=== PATIENT | female | born 1935 | race Caucasian/White ===

== ENCOUNTER 2019-03-22 16:35 | Inpatient (IN) | payer MEDICARE, OTHER ==
[~2019-03-22] VITALS: Ht 160 cm; Wt 55.8 kg
[2019-03-22 19:45] VITALS: BP_SYST 137; BP_SYST 139; BP_DIAS 64
[2019-03-22] MEDS ORDERED: MELATONIN 5 MG TABLET PO PRN (20:15)
[2019-03-22] MEDS ORDERED: ACETAMINOPHEN 325 MG TABLET PO PRN ×2 (20:15)
[2019-03-22] MEDS ORDERED: SODIUM CHLORIDE 0.9% 250 ML IV ONE (21:40)
[2019-03-22] MEDS: DOCUSATE SODIUM 100 MG CAPSULE PO SCH (21:51)
[2019-03-22] MEDS: PIPERACILLIN/TAZO 3.375 GM/D5W 50 ML IV SCH (21:51)
[2019-03-22] MEDS: PANTOPRAZOLE SODIUM 40 MG DR TABLET PO SCH (21:51)
[2019-03-22] MEDS: SENNA 187 MG TABLET PO SCH (21:51)
[2019-03-22] MEDS ORDERED: SODIUM CL IRRIG SOLN BOTTLE 250 ML IRRIG ONE (22:06)
[2019-03-23 01:12] VITALS: BP 144/71
[2019-03-23] MEDS: PIPERACILLIN/TAZO 3.375 GM/D5W 50 ML IV SCH ×3 (05:02→21:11)
[2019-03-23 07:50] LABS: EOSINOPHILS % (AUTO) 1.5 % (1.0-6.0); HEMATOCRIT 25.5 % (36-46); HEMOGLOBIN 8.6 g/dL (12.0-16.0); LYMPHOCYTES % (AUTO) 10.1 % (22.0-44.0); MEAN CORPUSCULAR HEMOGLOBIN 31.7 pg (26.0-34.0); MEAN CORPUSCULAR HGB CONC 33.8 G/dL (31.0-37.0); MEAN CORPUSCULAR VOLUME 94 fL (80-100); MONOCYTES # (AUTO) 1.1 K/uL (0.1-1.0); NEUTROPHILS # (AUTO) 7.5 K/uL (1.8-7.7); NEUTROPHILS % (AUTO) 76.4 % (40.0-70.0); PLATELET COUNT (AUTO) 743 K/uL (150-450); RED BLOOD CELL COUNT(AUTO) 2.73 MIL/uL (4.00-5.20); RED CELL DISTRIBUTION WIDTH 16.9 % (11.5-14.5)
[2019-03-23 08:14] LABS: ALANINE AMINOTRANSFERASE 18 U/L (12-78); ALBUMIN 1.4 g/dL (3.4-5.0); ALKALINE PHOSPHATASE 78 U/L (46-116); ANION GAP 7 mmol/L (8-16); ASPARTATE AMINOTRANSFERASE 20 U/L (15-37); BILIRUBIN,TOTAL 0.4 mg/dL (0.1-1.0); C-REACTIVE PROTEIN QUANT 3.27 mg/dL (0.00-0.30); CALCIUM, TOTAL 7.6 mg/dL (8.8-10.5); CARBON DIOXIDE 29 mmol/L (22-29); CHLORIDE 105 mmol/L (98-107); CREATININE 0.73 mg/dL (0.60-1.30); GLUCOSE,RANDOM 111 mg/dL (70-110); SODIUM SERUM 141 mmol/L (136-145); TOTAL PROTEIN, SERUM 4.9 g/dL (6.4-8.2); UREA NITROGEN, BLOOD 4 mg/dL (7-18)
[2019-03-23] MEDS: DOCUSATE SODIUM 100 MG CAPSULE PO SCH ×2 (08:17→21:00)
[2019-03-23] MEDS: MULTIVITAMINS WITH MINERALS, THERAPEUTIC TABLET PO SCH (08:17)
[2019-03-23] MEDS: ASCORBIC ACID 500 MG TABLET PO SCH (08:17)
[2019-03-23] MEDS: PANTOPRAZOLE SODIUM 40 MG DR TABLET PO SCH ×2 (08:17→19:55)
[2019-03-23 08:18] LABS: GLOMERULAR FILTR. RATE CALC > 60 mL/min (>60)
[2019-03-23] MEDS: 0.9% SODIUM CHLORIDE 10 ML SYRINGE IVP SCH ×3 (08:24→23:35)
[2019-03-23 08:41] VITALS: BP 129/64
[2019-03-23 09:28] LABS: ERYTHROCYTE SEDIMENTATION RATE 70 MM/HR (0-20)
[2019-03-23 17:15] VITALS: BP 132/75
[2019-03-23] MEDS: ONDANSETRON HCL 4 MG TABLET PO PRN ×2 (19:55→23:34)
[2019-03-23] MEDS: CHLORHEXIDINE GLUCONATE 4% 118 ML TOPICAL LIQUID TP SCH (21:00)
[2019-03-23] MEDS: SENNA 187 MG TABLET PO SCH (21:00)
[2019-03-23] MEDS ORDERED: SODIUM CHLORIDE 0.9% 100 ML ONE (21:04)
[2019-03-23 23:45] VITALS: BP 124/56
[2019-03-24] MEDS: PIPERACILLIN/TAZO 3.375 GM/D5W 50 ML IV SCH ×3 (04:55→21:00)
[2019-03-24] MEDS: ONDANSETRON HCL 4 MG TABLET PO PRN (04:55)
[2019-03-24 07:45] VITALS: BP 119/49
[2019-03-24] MEDS: PANTOPRAZOLE SODIUM 40 MG DR TABLET PO SCH (09:28)
[2019-03-24] MEDS: MULTIVITAMINS WITH MINERALS, THERAPEUTIC TABLET PO SCH ×2 (09:28→12:42)
[2019-03-24] MEDS: ASCORBIC ACID 500 MG TABLET PO SCH ×2 (09:28→12:42)
[2019-03-24] MEDS: 0.9% SODIUM CHLORIDE 10 ML SYRINGE IVP SCH ×2 (09:34→15:54)
[2019-03-24 10:09] LABS: ANION GAP 7 mmol/L (8-16); CALCIUM, TOTAL 8.2 mg/dL (8.8-10.5); CARBON DIOXIDE 30 mmol/L (22-29); CHLORIDE 104 mmol/L (98-107); CREATININE 0.66 mg/dL (0.60-1.30); GLOMERULAR FILTR. RATE CALC > 60 mL/min (>60); GLUCOSE,RANDOM 113 mg/dL (70-110); POTASSIUM 3.1 mmol/L (3.5-5.1); SODIUM SERUM 141 mmol/L (136-145); UREA NITROGEN, BLOOD 5 mg/dL (7-18)
[2019-03-24] MEDS ORDERED: POTASSIUM CHLORIDE 10% 40 MEQ/30 ML LIQUID UDCUP PO ONE (10:45)
[2019-03-24] MEDS: DOCUSATE SODIUM 100 MG CAPSULE PO SCH ×2 (12:42→21:00)
[2019-03-24] MEDS ORDERED: ONDANSETRON HCL 4 MG/2 ML VIAL IVP PRN (13:30)
[2019-03-24] MEDS ORDERED: POTASSIUM CHL 20 MEQ/0.9% NS 1,000 ML IV SCH (14:00)
[2019-03-24] MEDS ORDERED: ERGOCALCIFEROL (VIT D2) 50,000 UNITS CAPSULE PO SCH (14:04)
[2019-03-24] MEDS ORDERED: SODIUM CHLORIDE 0.9% 100 ML ONE (14:49)
[2019-03-24] MEDS ORDERED: IOVERSOL 320 MG/ML 100 ML VIAL ONE (14:49)
[2019-03-24 15:43] VITALS: BP 142/56
[2019-03-24] MEDS ORDERED: ONDANSETRON HCL 4 MG TABLET PO PRN (17:45)
[2019-03-24] MEDS ORDERED: HYDROmorphone 2 MG/ML SYRINGE IVP ONE (20:15)
[2019-03-24] MEDS ORDERED: CALCIUM CARBONATE 500 MG CHEWABLE TABLET CHEW SCH (21:00)
[2019-03-24] MEDS: SENNA 187 MG TABLET PO SCH (21:00)
[2019-03-24] MEDS: CHLORHEXIDINE GLUCONATE 4% 118 ML TOPICAL LIQUID TP SCH (21:00)
[2019-03-24] MEDS ORDERED: PANTOPRAZOLE SODIUM 40 MG/VIAL IVP SCH (21:00)
[2019-03-24 21:26] VITALS: BP 150/74
== END 2019-03-24 21:40 | disposition short-term general hospital (02) | DRG 947 ==
LOC: 2WR 19:30
PROVIDERS: ADMIT Physical Medicine & Rehabilitation; ATTEND Physical Medicine & Rehabilitation
DX: R53.81 Other malaise (principal); G93.41 Metabolic encephalopathy; I10 Essential (primary) hypertension; M81.0 Age-related osteoporosis without current pathological fracture; Z96.642 Presence of left artificial hip joint; E87.6 Hypokalemia; E83.51 Hypocalcemia; G43.909 Migraine, unspecified, not intractable, without status migrainosus; Z82.0 Family history of epilepsy and other diseases of the nervous system; Z82.49 Family history of ischemic heart disease and other diseases of the circulatory system; Z83.3 Family history of diabetes mellitus; Z93.3 Colostomy status; Z79.899 Other long term (current) drug therapy
CPT/HCPCS: 74018; 74177; 84132; 85651; 86140; 87081; 97110; 97116; 97162; 97166; 97530; 97535; J1170; J2405; J2543; J3480; J7050; Q0162

== ENCOUNTER 2019-04-01 17:24 | Inpatient (IN) | payer MEDICARE, OTHER ==
[~2019-04-01] VITALS: Ht 160 cm; Wt 56.2 kg
[2019-04-01 19:28] VITALS: BP 149/75
[2019-04-01] MEDS ORDERED: ALBUTEROL SULFATE 2.5 MG/0.5 ML NEB SOLUTION NEB PRN (20:15)
[2019-04-01] MEDS ORDERED: SODIUM CL IRRIG SOLN BOTTLE 250 ML IRRIG ONE (20:55)
[2019-04-01] MEDS ORDERED: ACETAMINOPHEN 325 MG TABLET PO PRN (22:00)
[2019-04-01] MEDS ORDERED: SODIUM CHLORIDE 0.9% 250 ML IV ONE (22:23)
[2019-04-01] MEDS: DOCUSATE SODIUM 100 MG CAPSULE PO SCH (22:30)
[2019-04-01] MEDS: SENNA 187 MG TABLET PO SCH (22:30)
[2019-04-01] MEDS: PIPERACILLIN/TAZO 3.375 GM/D5W 50 ML IV SCH (22:31)
[2019-04-02] MEDS: 0.9% SODIUM CHLORIDE 10 ML SYRINGE IVP SCH ×4 (04:59→23:50)
[2019-04-02] MEDS: PIPERACILLIN/TAZO 3.375 GM/D5W 50 ML IV SCH ×3 (04:59→21:05)
[2019-04-02] MEDS: PANTOPRAZOLE SODIUM 40 MG DR TABLET PO SCH ×2 (05:44→17:07)
[2019-04-02 07:48] LABS: BASOPHILS % (AUTO) 2.2 % (0.0-2.0); EOSINOPHILS % (AUTO) 3.9 % (1.0-6.0); HEMATOCRIT 25.7 % (36-46); HEMOGLOBIN 8.8 g/dL (12.0-16.0); LYMPHOCYTES # (AUTO) 1.7 K/uL (1.0-4.8); LYMPHOCYTES % (AUTO) 25.8 % (22.0-44.0); MEAN CORPUSCULAR HEMOGLOBIN 31.6 pg (26.0-34.0); MEAN CORPUSCULAR HGB CONC 34.1 G/dL (31.0-37.0); MEAN CORPUSCULAR VOLUME 93 fL (80-100); MONOCYTES # (AUTO) 0.7 K/uL (0.1-1.0); MONOCYTES % (AUTO) 10.9 % (2.0-9.0); NEUTROPHILS # (AUTO) 3.9 K/uL (1.8-7.7); NEUTROPHILS % (AUTO) 57.2 % (40.0-70.0); PLATELET COUNT (AUTO) 444 K/uL (150-450); RED BLOOD CELL COUNT(AUTO) 2.77 MIL/uL (4.00-5.20); RED CELL DISTRIBUTION WIDTH 16.9 % (11.5-14.5)
[2019-04-02 08:03] LABS: ALANINE AMINOTRANSFERASE 9 U/L (12-78); ALBUMIN 1.7 g/dL (3.4-5.0); ALKALINE PHOSPHATASE 75 U/L (46-116); ANION GAP 8 mmol/L (8-16); ASPARTATE AMINOTRANSFERASE 18 U/L (15-37); BILIRUBIN,TOTAL 0.3 mg/dL (0.1-1.0); CALCIUM, TOTAL 8.4 mg/dL (8.8-10.5); CARBON DIOXIDE 26 mmol/L (22-29); CHLORIDE 105 mmol/L (98-107); CREATININE 0.82 mg/dL (0.60-1.30); GLUCOSE,RANDOM 94 mg/dL (70-110); POTASSIUM 3.4 mmol/L (3.5-5.1); SODIUM SERUM 139 mmol/L (136-145); TOTAL PROTEIN, SERUM 5.6 g/dL (6.4-8.2); UREA NITROGEN, BLOOD 10 mg/dL (7-18)
[2019-04-02 08:04] LABS: GLOMERULAR FILTR. RATE CALC > 60 mL/min (>60)
[2019-04-02] MEDS: ASCORBIC ACID 500 MG TABLET PO SCH (08:35)
[2019-04-02] MEDS: DOCUSATE SODIUM 100 MG CAPSULE PO SCH ×2 (08:35→21:05)
[2019-04-02 09:01] VITALS: BP 139/75
[2019-04-02] MEDS ORDERED: SODIUM CL IRRIG SOLN BOTTLE 250 ML IRRIG ONE (14:07)
[2019-04-02 15:27] VITALS: BP 117/62
[2019-04-02] MEDS ORDERED: SODIUM CHLORIDE 0.9% 100 ML ONE (20:54)
[2019-04-02] MEDS: MELATONIN 5 MG TABLET PO PRN (21:05)
[2019-04-02] MEDS: SENNA 187 MG TABLET PO SCH (21:05)
[2019-04-03 03:00] VITALS: BP 121/58
[2019-04-03] MEDS: PIPERACILLIN/TAZO 3.375 GM/D5W 50 ML IV SCH ×3 (05:02→20:56)
[2019-04-03] MEDS: PANTOPRAZOLE SODIUM 40 MG DR TABLET PO SCH ×2 (05:06→15:59)
[2019-04-03 07:48] VITALS: BP 144/72
[2019-04-03] MEDS: 0.9% SODIUM CHLORIDE 10 ML SYRINGE IVP SCH ×2 (08:14→16:21)
[2019-04-03] MEDS: DOCUSATE SODIUM 100 MG CAPSULE PO SCH ×2 (08:14→20:55)
[2019-04-03] MEDS: ASCORBIC ACID 500 MG TABLET PO SCH (08:14)
[2019-04-03] MEDS: HYDROCODONE/ACETAMINOPHEN 5-325 MG TABLET PO PRN (15:58)
[2019-04-03] MEDS: ONDANSETRON HCL 4 MG TABLET PO PRN (15:59)
[2019-04-03 16:33] VITALS: BP 145/65
[2019-04-03] MEDS: SIMETHICONE 80 MG CHEWABLE TABLET CHEW PRN (18:25)
[2019-04-03] MEDS: SENNA 187 MG TABLET PO SCH (20:55)
[2019-04-03] MEDS ORDERED: SODIUM CHLORIDE 0.9% 100 ML ONE (21:08)
[2019-04-03] MEDS: MELATONIN 5 MG TABLET PO PRN (22:30)
[2019-04-04] MEDS: 0.9% SODIUM CHLORIDE 10 ML SYRINGE IVP SCH ×4 (00:15→23:46)
[2019-04-04] MEDS: PIPERACILLIN/TAZO 3.375 GM/D5W 50 ML IV SCH ×3 (04:58→20:19)
[2019-04-04 05:00] VITALS: BP 125/65
[2019-04-04] MEDS: PANTOPRAZOLE SODIUM 40 MG DR TABLET PO SCH ×2 (05:45→16:30)
[2019-04-04 06:17] LABS: BASOPHILS % (AUTO) 1.8 % (0.0-2.0); EOSINOPHILS % (AUTO) 2.6 % (1.0-6.0); HEMATOCRIT 26.9 % (36-46); HEMOGLOBIN 8.9 g/dL (12.0-16.0); LYMPHOCYTES # (AUTO) 1.5 K/uL (1.0-4.8); LYMPHOCYTES % (AUTO) 20.2 % (22.0-44.0); MEAN CORPUSCULAR HEMOGLOBIN 30.8 pg (26.0-34.0); MEAN CORPUSCULAR VOLUME 93 fL (80-100); MONOCYTES # (AUTO) 0.7 K/uL (0.1-1.0); MONOCYTES % (AUTO) 9.2 % (2.0-9.0); NEUTROPHILS % (AUTO) 66.2 % (40.0-70.0); PLATELET COUNT (AUTO) 443 K/uL (150-450); RED BLOOD CELL COUNT(AUTO) 2.88 MIL/uL (4.00-5.20); RED CELL DISTRIBUTION WIDTH 16.9 % (11.5-14.5)
[2019-04-04 06:40] LABS: ALANINE AMINOTRANSFERASE 9 U/L (12-78); ALBUMIN 1.8 g/dL (3.4-5.0); ALKALINE PHOSPHATASE 77 U/L (46-116); ANION GAP 8 mmol/L (8-16); ASPARTATE AMINOTRANSFERASE 17 U/L (15-37); BILIRUBIN,TOTAL 0.2 mg/dL (0.1-1.0); CALCIUM, TOTAL 8.5 mg/dL (8.8-10.5); CARBON DIOXIDE 27 mmol/L (22-29); CHLORIDE 104 mmol/L (98-107); CREATININE 0.76 mg/dL (0.60-1.30); GLUCOSE,RANDOM 107 mg/dL (70-110); POTASSIUM 3.2 mmol/L (3.5-5.1); SODIUM SERUM 139 mmol/L (136-145); TOTAL PROTEIN, SERUM 5.7 g/dL (6.4-8.2); UREA NITROGEN, BLOOD 9 mg/dL (7-18)
[2019-04-04 07:00] LABS: GLOMERULAR FILTR. RATE CALC > 60 mL/min (>60)
[2019-04-04 07:37] VITALS: BP 122/60
[2019-04-04] MEDS: DOCUSATE SODIUM 100 MG CAPSULE PO SCH ×3 (07:54→13:55)
[2019-04-04] MEDS: ASCORBIC ACID 500 MG TABLET PO SCH ×3 (07:54→13:55)
[2019-04-04] MEDS: SIMETHICONE 80 MG CHEWABLE TABLET CHEW PRN (08:48)
[2019-04-04] MEDS: HYDROCODONE/ACETAMINOPHEN 5-325 MG TABLET PO PRN (08:51)
[2019-04-04] MEDS: ONDANSETRON HCL 4 MG TABLET PO PRN (11:02)
[2019-04-04 12:29] LABS: C-REACTIVE PROTEIN QUANT 0.81 mg/dL (0.00-0.30)
[2019-04-04] MEDS ORDERED: SODIUM CHLORIDE 0.9% 1,000 ML IV ONE (12:30)
[2019-04-04] MEDS ORDERED: POTASSIUM CHLORIDE 20 MEQ ER TABLET PO ONE ×2 (13:00→21:00)
[2019-04-04] MEDS ORDERED: POTASSIUM CHL 10 MEQ/WATER 50 ML IV SCH (14:00)
[2019-04-04] MEDS: POLYETHYLENE GLYCOL 3350 17 GM PACKET PO SCH (15:19)
[2019-04-04 15:38] VITALS: BP 146/69
[2019-04-04] MEDS ORDERED: SODIUM CHLORIDE 0.45% 1,000 ML IV SCH (16:15)
[2019-04-04] MEDS ORDERED: SODIUM CHLORIDE 0.9% 250 ML IV ONE (20:09)
[2019-04-04] MEDS: SENNA 187 MG TABLET PO SCH (20:17)
[2019-04-04] MEDS: DOCUSATE SODIUM 250 MG CAPSULE PO SCH (20:18)
[2019-04-04] MEDS: MELATONIN 5 MG TABLET PO PRN (22:12)
[2019-04-05] MEDS ORDERED: POTASSIUM CHLORIDE 10% 40 MEQ/30 ML LIQUID UDCUP PO ONE
[2019-04-05 01:02] VITALS: BP 139/68
[2019-04-05] MEDS: PIPERACILLIN/TAZO 3.375 GM/D5W 50 ML IV SCH ×3 (05:07→20:27)
[2019-04-05] MEDS: PANTOPRAZOLE SODIUM 40 MG DR TABLET PO SCH ×2 (05:47→16:24)
[2019-04-05 08:07] LABS: BASOPHILS % (AUTO) 1.7 % (0.0-2.0); EOSINOPHILS % (AUTO) 2.5 % (1.0-6.0); HEMATOCRIT 24.8 % (36-46); HEMOGLOBIN 8.6 g/dL (12.0-16.0); LYMPHOCYTES # (AUTO) 1.9 K/uL (1.0-4.8); LYMPHOCYTES % (AUTO) 24.7 % (22.0-44.0); MEAN CORPUSCULAR HGB CONC 34.5 G/dL (31.0-37.0); MEAN CORPUSCULAR VOLUME 93 fL (80-100); MONOCYTES # (AUTO) 0.8 K/uL (0.1-1.0); MONOCYTES % (AUTO) 10.6 % (2.0-9.0); NEUTROPHILS # (AUTO) 4.5 K/uL (1.8-7.7); NEUTROPHILS % (AUTO) 60.5 % (40.0-70.0); PLATELET COUNT (AUTO) 432 K/uL (150-450); RED BLOOD CELL COUNT(AUTO) 2.67 MIL/uL (4.00-5.20); RED CELL DISTRIBUTION WIDTH 16.8 % (11.5-14.5)
[2019-04-05 08:15] VITALS: BP 130/63
[2019-04-05 08:50] LABS: ALANINE AMINOTRANSFERASE 12 U/L (12-78); ALBUMIN 1.8 g/dL (3.4-5.0); ALKALINE PHOSPHATASE 74 U/L (46-116); ANION GAP 6 mmol/L (8-16); ASPARTATE AMINOTRANSFERASE 17 U/L (15-37); BILIRUBIN,TOTAL 0.3 mg/dL (0.1-1.0); CALCIUM, TOTAL 8.4 mg/dL (8.8-10.5); CARBON DIOXIDE 28 mmol/L (22-29); CHLORIDE 105 mmol/L (98-107); CREATININE 0.69 mg/dL (0.60-1.30); GLUCOSE,RANDOM 91 mg/dL (70-110); POTASSIUM 3.6 mmol/L (3.5-5.1); SODIUM SERUM 139 mmol/L (136-145); TOTAL PROTEIN, SERUM 5.5 g/dL (6.4-8.2); UREA NITROGEN, BLOOD 7 mg/dL (7-18)
[2019-04-05 08:53] LABS: GLOMERULAR FILTR. RATE CALC > 60 mL/min (>60)
[2019-04-05] MEDS: POLYETHYLENE GLYCOL 3350 17 GM PACKET PO SCH (08:53)
[2019-04-05] MEDS: DOCUSATE SODIUM 250 MG CAPSULE PO SCH ×2 (08:53→20:28)
[2019-04-05] MEDS: ASCORBIC ACID 500 MG TABLET PO SCH (08:53)
[2019-04-05 15:20] VITALS: BP 131/64
[2019-04-05] MEDS ORDERED: SOD FERRIC GLUC COMPLX/SUCROSE 125 MG in SODIUM CHLORIDE 0.9% 100 ML IV ONE (16:00)
[2019-04-05] MEDS: 0.9% SODIUM CHLORIDE 10 ML SYRINGE IVP SCH ×2 (16:24→23:31)
[2019-04-05] MEDS: LACTOBACILLUS ACIDOPHILUS/BULGARICUS GRANULES PACKET PO SCH ×2 (16:24→20:28)
[2019-04-05] MEDS: MELATONIN 5 MG TABLET PO PRN (20:28)
[2019-04-05] MEDS: SENNA 187 MG TABLET PO SCH (20:28)
[2019-04-06 00:13] VITALS: BP 135/74
[2019-04-06] MEDS: PIPERACILLIN/TAZO 3.375 GM/D5W 50 ML IV SCH ×3 (05:07→20:11)
[2019-04-06] MEDS: PANTOPRAZOLE SODIUM 40 MG DR TABLET PO SCH ×2 (06:00→16:57)
[2019-04-06 07:34] VITALS: BP 157/77
[2019-04-06] MEDS: DOCUSATE SODIUM 250 MG CAPSULE PO SCH ×2 (07:54→20:11)
[2019-04-06] MEDS: MULTIVITAMINS WITH MINERALS, THERAPEUTIC TABLET PO SCH (07:54)
[2019-04-06] MEDS: ASCORBIC ACID 500 MG TABLET PO SCH (07:54)
[2019-04-06] MEDS: POLYETHYLENE GLYCOL 3350 17 GM PACKET PO SCH (07:54)
[2019-04-06] MEDS: LACTOBACILLUS ACIDOPHILUS/BULGARICUS GRANULES PACKET PO SCH ×3 (07:55→20:11)
[2019-04-06] MEDS: 0.9% SODIUM CHLORIDE 10 ML SYRINGE IVP SCH ×3 (09:19→23:41)
[2019-04-06 09:34] LABS: BASOPHILS % (AUTO) 2.6 % (0.0-2.0); EOSINOPHILS % (AUTO) 1.4 % (1.0-6.0); HEMATOCRIT 31.8 % (36-46); HEMOGLOBIN 10.5 g/dL (12.0-16.0); LYMPHOCYTES # (AUTO) 1.4 K/uL (1.0-4.8); LYMPHOCYTES % (AUTO) 20.4 % (22.0-44.0); MEAN CORPUSCULAR HEMOGLOBIN 30.9 pg (26.0-34.0); MEAN CORPUSCULAR HGB CONC 33.1 G/dL (31.0-37.0); MEAN CORPUSCULAR VOLUME 93 fL (80-100); MONOCYTES # (AUTO) 0.6 K/uL (0.1-1.0); MONOCYTES % (AUTO) 8.8 % (2.0-9.0); NEUTROPHILS # (AUTO) 4.7 K/uL (1.8-7.7); NEUTROPHILS % (AUTO) 66.8 % (40.0-70.0); PLATELET COUNT (AUTO) 550 K/uL (150-450); RED CELL DISTRIBUTION WIDTH 17.2 % (11.5-14.5)
[2019-04-06 09:47] LABS: CALCIUM, TOTAL 9.2 mg/dL (8.8-10.5); CREATININE 0.96 mg/dL (0.60-1.30); MAGNESIUM 1.8 mg/dL (1.80-2.40); PHOSPHORUS 2.7 mg/dL (2.5-4.9); POTASSIUM 3.4 mmol/L (3.5-5.1)
[2019-04-06 09:53] LABS: % IRON SATURATION 56.5 % (22-44)
[2019-04-06 15:37] VITALS: BP 139/70
[2019-04-06] MEDS ORDERED: POTASSIUM CHLORIDE 20 MEQ ER TABLET PO ONE (17:45)
[2019-04-06] MEDS: SENNA 187 MG TABLET PO SCH (20:11)
[2019-04-06 23:30] VITALS: BP 141/77
[2019-04-07] MEDS: PIPERACILLIN/TAZO 3.375 GM/D5W 50 ML IV SCH ×3 (05:06→20:20)
[2019-04-07] MEDS: PANTOPRAZOLE SODIUM 40 MG DR TABLET PO SCH ×2 (06:26→16:47)
[2019-04-07 07:25] VITALS: BP 124/71
[2019-04-07] MEDS: 0.9% SODIUM CHLORIDE 10 ML SYRINGE IVP SCH ×3 (08:34→23:09)
[2019-04-07] MEDS: POLYETHYLENE GLYCOL 3350 17 GM PACKET PO SCH (08:34)
[2019-04-07] MEDS: LACTOBACILLUS ACIDOPHILUS/BULGARICUS GRANULES PACKET PO SCH ×3 (08:35→20:19)
[2019-04-07] MEDS: ASCORBIC ACID 500 MG TABLET PO SCH (08:36)
[2019-04-07] MEDS: MULTIVITAMINS WITH MINERALS, THERAPEUTIC TABLET PO SCH (08:36)
[2019-04-07] MEDS: DOCUSATE SODIUM 250 MG CAPSULE PO SCH ×2 (08:36→20:19)
[2019-04-07 16:44] VITALS: BP 120/70
[2019-04-07] MEDS: SENNA 187 MG TABLET PO SCH (20:19)
[2019-04-07] MEDS: MELATONIN 5 MG TABLET PO PRN (20:19)
[2019-04-07 23:32] VITALS: BP 140/72
[2019-04-08] MEDS: PIPERACILLIN/TAZO 3.375 GM/D5W 50 ML IV SCH ×3 (04:56→20:04)
[2019-04-08] MEDS: PANTOPRAZOLE SODIUM 40 MG DR TABLET PO SCH ×2 (04:57→16:52)
[2019-04-08 07:10] LABS: BASOPHILS % (AUTO) 1.2 % (0.0-2.0); HEMATOCRIT 28.4 % (36-46); HEMOGLOBIN 9.8 g/dL (12.0-16.0); LYMPHOCYTES # (AUTO) 2.2 K/uL (1.0-4.8); LYMPHOCYTES % (AUTO) 25.8 % (22.0-44.0); MEAN CORPUSCULAR HEMOGLOBIN 31.9 pg (26.0-34.0); MEAN CORPUSCULAR HGB CONC 34.5 G/dL (31.0-37.0); MEAN CORPUSCULAR VOLUME 93 fL (80-100); MONOCYTES # (AUTO) 0.8 K/uL (0.1-1.0); MONOCYTES % (AUTO) 10.1 % (2.0-9.0); NEUTROPHILS # (AUTO) 5.1 K/uL (1.8-7.7); NEUTROPHILS % (AUTO) 60.9 % (40.0-70.0); PLATELET COUNT (AUTO) 449 K/uL (150-450); RED BLOOD CELL COUNT(AUTO) 3.07 MIL/uL (4.00-5.20); RED CELL DISTRIBUTION WIDTH 17.6 % (11.5-14.5)
[2019-04-08 07:16] LABS: ANION GAP 7 mmol/L (8-16); CALCIUM, TOTAL 8.8 mg/dL (8.8-10.5); CARBON DIOXIDE 29 mmol/L (22-29); CHLORIDE 107 mmol/L (98-107); CREATININE 0.76 mg/dL (0.60-1.30); GLUCOSE,RANDOM 105 mg/dL (70-110); POTASSIUM 4.1 mmol/L (3.5-5.1); SODIUM SERUM 143 mmol/L (136-145); UREA NITROGEN, BLOOD 9 mg/dL (7-18)
[2019-04-08 07:18] LABS: GLOMERULAR FILTR. RATE CALC > 60 mL/min (>60)
[2019-04-08 07:40] VITALS: BP 145/70
[2019-04-08] MEDS: ASCORBIC ACID 500 MG TABLET PO SCH (08:06)
[2019-04-08] MEDS: DOCUSATE SODIUM 250 MG CAPSULE PO SCH ×2 (08:06→20:04)
[2019-04-08] MEDS: LACTOBACILLUS ACIDOPHILUS/BULGARICUS GRANULES PACKET PO SCH ×3 (08:06→20:04)
[2019-04-08] MEDS: MULTIVITAMINS WITH MINERALS, THERAPEUTIC TABLET PO SCH (08:06)
[2019-04-08] MEDS: POLYETHYLENE GLYCOL 3350 17 GM PACKET PO SCH ×2 (08:07→08:12)
[2019-04-08] MEDS ORDERED: [UNRECOGNIZED DRUG - CODE] PO (09:47)
[2019-04-08] MEDS ORDERED: CHOL125C2 PO (09:47)
[2019-04-08] MEDS ORDERED: PYRI100T19 PO (09:50)
[2019-04-08] MEDS ORDERED: CALC-1038 PO (09:56)
[2019-04-08] MEDS ORDERED: SODIUM CHLORIDE 0.9% 250 ML IV ONE (12:34)
[2019-04-08] MEDS: 0.9% SODIUM CHLORIDE 10 ML SYRINGE IVP SCH ×3 (13:10→23:10)
[2019-04-08] MEDS: HYDROCODONE/ACETAMINOPHEN 5-325 MG TABLET PO PRN ×2 (13:25→23:10)
[2019-04-08] MEDS: ERGOCALCIFEROL (VIT D2) 50,000 UNITS CAPSULE PO SCH (14:04)
[2019-04-08 15:39] VITALS: BP 135/66
[2019-04-08] MEDS: SENNA 187 MG TABLET PO SCH (20:04)
[2019-04-08] MEDS: SIMETHICONE 80 MG CHEWABLE TABLET CHEW PRN (20:31)
[2019-04-08 23:10] VITALS: BP 150/68
[2019-04-09] MEDS: PIPERACILLIN/TAZO 3.375 GM/D5W 50 ML IV SCH ×3 (05:39→20:22)
[2019-04-09] MEDS: PANTOPRAZOLE SODIUM 40 MG DR TABLET PO SCH ×2 (06:10→18:15)
[2019-04-09 07:53] VITALS: BP 124/55
[2019-04-09] MEDS: 0.9% SODIUM CHLORIDE 10 ML SYRINGE IVP SCH ×2 (08:38→16:01)
[2019-04-09] MEDS: MULTIVITAMINS WITH MINERALS, THERAPEUTIC TABLET PO SCH (08:38)
[2019-04-09] MEDS: DOCUSATE SODIUM 250 MG CAPSULE PO SCH ×2 (08:38→20:23)
[2019-04-09] MEDS: ASCORBIC ACID 500 MG TABLET PO SCH (08:38)
[2019-04-09] MEDS: POLYETHYLENE GLYCOL 3350 17 GM PACKET PO SCH (08:38)
[2019-04-09] MEDS: LACTOBACILLUS ACIDOPHILUS/BULGARICUS GRANULES PACKET PO SCH ×3 (10:31→20:22)
[2019-04-09] MEDS: HYDROCODONE/ACETAMINOPHEN 5-325 MG TABLET PO PRN ×2 (10:31→22:34)
[2019-04-09 17:07] VITALS: BP 120/59
[2019-04-09] MEDS: SENNA 187 MG TABLET PO SCH (20:23)
[2019-04-10 01:02] VITALS: BP 145/69
[2019-04-10] MEDS: 0.9% SODIUM CHLORIDE 10 ML SYRINGE IVP SCH ×3 (01:02→16:40)
[2019-04-10] MEDS: PIPERACILLIN/TAZO 3.375 GM/D5W 50 ML IV SCH ×3 (05:27→20:58)
[2019-04-10] MEDS: PANTOPRAZOLE SODIUM 40 MG DR TABLET PO SCH ×2 (05:58→16:40)
[2019-04-10 07:50] VITALS: BP 119/62
[2019-04-10] MEDS: LACTOBACILLUS ACIDOPHILUS/BULGARICUS GRANULES PACKET PO SCH ×3 (08:41→21:00)
[2019-04-10] MEDS: DOCUSATE SODIUM 250 MG CAPSULE PO SCH ×2 (08:41→20:59)
[2019-04-10] MEDS: ASCORBIC ACID 500 MG TABLET PO SCH (08:41)
[2019-04-10] MEDS: MULTIVITAMINS WITH MINERALS, THERAPEUTIC TABLET PO SCH (08:41)
[2019-04-10] MEDS: POLYETHYLENE GLYCOL 3350 17 GM PACKET PO SCH (08:42)
[2019-04-10] MEDS: HYDROCODONE/ACETAMINOPHEN 5-325 MG TABLET PO PRN ×2 (13:19→22:11)
[2019-04-10] MEDS: SIMETHICONE 80 MG CHEWABLE TABLET CHEW PRN (14:38)
[2019-04-10 15:33] VITALS: BP 135/65
[2019-04-10] MEDS: SENNA 187 MG TABLET PO SCH (20:59)
[2019-04-10 23:11] VITALS: BP 137/67
[2019-04-11] MEDS ORDERED: SODIUM CHLORIDE 0.9% 250 ML IV ONE (04:25)
[2019-04-11] MEDS: PIPERACILLIN/TAZO 3.375 GM/D5W 50 ML IV SCH ×3 (05:15→20:47)
[2019-04-11] MEDS: 0.9% SODIUM CHLORIDE 10 ML SYRINGE IVP SCH ×3 (05:16→16:45)
[2019-04-11] MEDS: PANTOPRAZOLE SODIUM 40 MG DR TABLET PO SCH ×2 (05:58→16:44)
[2019-04-11 07:30] VITALS: BP 119/65
[2019-04-11] MEDS: ASCORBIC ACID 500 MG TABLET PO SCH (09:12)
[2019-04-11] MEDS: DOCUSATE SODIUM 250 MG CAPSULE PO SCH ×2 (09:12→20:47)
[2019-04-11] MEDS: LACTOBACILLUS ACIDOPHILUS/BULGARICUS GRANULES PACKET PO SCH ×3 (09:12→20:47)
[2019-04-11] MEDS: POLYETHYLENE GLYCOL 3350 17 GM PACKET PO SCH (09:12)
[2019-04-11] MEDS: MULTIVITAMINS WITH MINERALS, THERAPEUTIC TABLET PO SCH (09:12)
[2019-04-11 16:22] VITALS: BP 145/73
[2019-04-11] MEDS: SENNA 187 MG TABLET PO SCH (20:46)
[2019-04-11] MEDS: MELATONIN 5 MG TABLET PO PRN (20:47)
[2019-04-12] MEDS: PIPERACILLIN/TAZO 3.375 GM/D5W 50 ML IV SCH ×3 (05:22→21:08)
[2019-04-12 05:25] VITALS: BP 147/72
[2019-04-12 07:15] VITALS: BP 134/72
[2019-04-12] MEDS: PANTOPRAZOLE SODIUM 40 MG DR TABLET PO SCH ×2 (07:31→17:47)
[2019-04-12] MEDS: POLYETHYLENE GLYCOL 3350 17 GM PACKET PO SCH (09:34)
[2019-04-12] MEDS: LACTOBACILLUS ACIDOPHILUS/BULGARICUS GRANULES PACKET PO SCH ×3 (09:34→21:07)
[2019-04-12] MEDS: ASCORBIC ACID 500 MG TABLET PO SCH (09:34)
[2019-04-12] MEDS: 0.9% SODIUM CHLORIDE 10 ML SYRINGE IVP SCH ×3 (09:36→17:47)
[2019-04-12] MEDS: MULTIVITAMINS WITH MINERALS, THERAPEUTIC TABLET PO SCH (09:36)
[2019-04-12] MEDS: DOCUSATE SODIUM 250 MG CAPSULE PO SCH ×2 (09:36→21:08)
[2019-04-12 16:31] VITALS: BP 156/65
[2019-04-12] MEDS: SENNA 187 MG TABLET PO SCH (21:08)
[2019-04-12 23:50] VITALS: BP 122/60
[2019-04-13] MEDS: 0.9% SODIUM CHLORIDE 10 ML SYRINGE IVP SCH ×4 (00:04→23:09)
[2019-04-13] MEDS: PIPERACILLIN/TAZO 3.375 GM/D5W 50 ML IV SCH ×3 (05:11→21:19)
[2019-04-13] MEDS: PANTOPRAZOLE SODIUM 40 MG DR TABLET PO SCH (08:25)
[2019-04-13] MEDS: ASCORBIC ACID 500 MG TABLET PO SCH (08:29)
[2019-04-13] MEDS: MULTIVITAMINS WITH MINERALS, THERAPEUTIC TABLET PO SCH (08:29)
[2019-04-13] MEDS: LACTOBACILLUS ACIDOPHILUS/BULGARICUS GRANULES PACKET PO SCH ×3 (08:29→21:20)
[2019-04-13] MEDS: DOCUSATE SODIUM 250 MG CAPSULE PO SCH (08:35)
[2019-04-13] MEDS: POLYETHYLENE GLYCOL 3350 17 GM PACKET PO SCH (08:35)
[2019-04-13 09:00] VITALS: BP 119/59
[2019-04-13] MEDS ORDERED: POLYETHYLENE GLYCOL 3350 17 GM PACKET PO PRN (14:00)
[2019-04-13 15:00] VITALS: BP 132/63
[2019-04-13] MEDS: SENNA 187 MG TABLET PO SCH (21:19)
[2019-04-13 23:56] VITALS: BP 133/65
[2019-04-14] MEDS: PIPERACILLIN/TAZO 3.375 GM/D5W 50 ML IV SCH ×3 (05:04→20:16)
[2019-04-14 09:00] VITALS: BP 117/59
[2019-04-14] MEDS: 0.9% SODIUM CHLORIDE 10 ML SYRINGE IVP SCH ×3 (09:05→23:31)
[2019-04-14] MEDS: LACTOBACILLUS ACIDOPHILUS/BULGARICUS GRANULES PACKET PO SCH ×3 (09:05→20:16)
[2019-04-14] MEDS: ASCORBIC ACID 500 MG TABLET PO SCH (09:06)
[2019-04-14] MEDS: DOCUSATE SODIUM 250 MG CAPSULE PO SCH (09:06)
[2019-04-14] MEDS: MULTIVITAMINS WITH MINERALS, THERAPEUTIC TABLET PO SCH (09:06)
[2019-04-14 16:25] VITALS: BP 149/64
[2019-04-14] MEDS: SENNA 187 MG TABLET PO SCH (20:16)
[2019-04-14] MEDS: PANTOPRAZOLE SODIUM 40 MG DR TABLET PO SCH (20:16)
[2019-04-14 23:38] VITALS: BP 150/77
[2019-04-15] MEDS ORDERED: SODIUM CHLORIDE 0.9% 250 ML IV ONE (04:14)
[2019-04-15] MEDS: PIPERACILLIN/TAZO 3.375 GM/D5W 50 ML IV SCH ×3 (05:24→21:46)
[2019-04-15 08:00] VITALS: BP 149/73
[2019-04-15] MEDS: MULTIVITAMINS WITH MINERALS, THERAPEUTIC TABLET PO SCH (08:13)
[2019-04-15] MEDS: LACTOBACILLUS ACIDOPHILUS/BULGARICUS GRANULES PACKET PO SCH ×3 (08:13→21:50)
[2019-04-15] MEDS: ERGOCALCIFEROL (VIT D2) 50,000 UNITS CAPSULE PO SCH (08:13)
[2019-04-15] MEDS: ASCORBIC ACID 500 MG TABLET PO SCH (08:13)
[2019-04-15] MEDS: DOCUSATE SODIUM 250 MG CAPSULE PO SCH (08:13)
[2019-04-15] MEDS: 0.9% SODIUM CHLORIDE 10 ML SYRINGE IVP SCH ×3 (14:32→23:58)
[2019-04-15 15:00] VITALS: BP 127/60
[2019-04-15] MEDS: SENNA 187 MG TABLET PO SCH (21:50)
[2019-04-15] MEDS: PANTOPRAZOLE SODIUM 40 MG DR TABLET PO SCH (21:50)
[2019-04-16] VITALS: BP 129/59
[2019-04-16 00:07] VITALS: BP 129/59
[2019-04-16] MEDS: PIPERACILLIN/TAZO 3.375 GM/D5W 50 ML IV SCH ×3 (04:56→21:07)
[2019-04-16 08:00] VITALS: BP 132/72
[2019-04-16] MEDS: ASCORBIC ACID 500 MG TABLET PO SCH (08:19)
[2019-04-16] MEDS: MULTIVITAMINS WITH MINERALS, THERAPEUTIC TABLET PO SCH (08:19)
[2019-04-16] MEDS: DOCUSATE SODIUM 250 MG CAPSULE PO SCH (08:19)
[2019-04-16] MEDS: LACTOBACILLUS ACIDOPHILUS/BULGARICUS GRANULES PACKET PO SCH ×3 (08:19→21:08)
[2019-04-16] MEDS: 0.9% SODIUM CHLORIDE 10 ML SYRINGE IVP SCH ×2 (08:28→16:01)
[2019-04-16] MEDS ORDERED: ERGO500054 PO (15:56)
[2019-04-16] MEDS ORDERED: DOCU-342 PO (15:57)
[2019-04-16] MEDS ORDERED: PANT40TA25 PO (15:57)
[2019-04-16] MEDS ORDERED: ACID1GRA PO (15:58)
[2019-04-16] MEDS ORDERED: POLY17PO PO (16:00)
[2019-04-16] MEDS ORDERED: MULT-1239 PO (16:01)
[2019-04-16 17:00] VITALS: BP 130/71
[2019-04-16] MEDS: PANTOPRAZOLE SODIUM 40 MG DR TABLET PO SCH (21:08)
[2019-04-16] MEDS: SENNA 187 MG TABLET PO SCH (21:08)
[2019-04-17] MEDS: 0.9% SODIUM CHLORIDE 10 ML SYRINGE IVP SCH ×2 (00:34→08:35)
[2019-04-17 00:43] VITALS: BP 138/67
[2019-04-17] MEDS: PIPERACILLIN/TAZO 3.375 GM/D5W 50 ML IV SCH ×2 (04:57→10:49)
[2019-04-17 07:49] VITALS: BP 149/65
[2019-04-17] MEDS: MULTIVITAMINS WITH MINERALS, THERAPEUTIC TABLET PO SCH (08:34)
[2019-04-17] MEDS: ASCORBIC ACID 500 MG TABLET PO SCH (08:34)
[2019-04-17] MEDS: LACTOBACILLUS ACIDOPHILUS/BULGARICUS GRANULES PACKET PO SCH (08:34)
[2019-04-17] MEDS: DOCUSATE SODIUM 250 MG CAPSULE PO SCH (08:34)
[2019-04-17] MEDS ORDERED: AMOX1TAB16 PO (11:21)
[2019-04-17] MEDS ORDERED: ASCO500 PO (11:38)
== END 2019-04-17 13:20 | disposition home or self-care (01) | DRG 70 ==
LOC: 2WR 19:10
PROVIDERS: ADMIT Physical Medicine & Rehabilitation; ATTEND Physical Medicine & Rehabilitation
DX: G93.41 Metabolic encephalopathy (principal); A41.9 Sepsis, unspecified organism; R65.21 Severe sepsis with septic shock; E86.0 Dehydration; E87.6 Hypokalemia; G43.909 Migraine, unspecified, not intractable, without status migrainosus; I10 Essential (primary) hypertension; K59.00 Constipation, unspecified; Z96.642 Presence of left artificial hip joint; M81.0 Age-related osteoporosis without current pathological fracture; M19.90 Unspecified osteoarthritis, unspecified site; Z82.49 Family history of ischemic heart disease and other diseases of the circulatory system; Z93.3 Colostomy status
CPT/HCPCS: 74019; 74176; 83036; 83540; 83550; 83735; 84100; 84132; 86140; 87081; 97110; 97116; 97150; 97163; 97166; 97530; 97535; 99366; J2543; J2916; J3480; J7030; J7050; Q0162